=== PATIENT | female | born 1985 | race Caucasian/White ===

== ENCOUNTER 2017-03-31 06:59 | Emergency (ER) | payer SELFPAY ==
[~2017-03-31] VITALS: Ht 149.9 cm; Wt 42.4 kg
[2017-03-31 07:00] VITALS: BP 105/66
== END 2017-03-31 07:55 | disposition home or self-care (01) ==
LOC: ED 07:40
DX: L02.411 Cutaneous abscess of right axilla (principal)
CPT/HCPCS: 99283

== ENCOUNTER 2019-03-15 15:24 | Emergency (ER) | payer SELFPAY ==
[~2019-03-15] VITALS: Ht 157.5 cm; Wt 40.4 kg
[2019-03-15] MEDS ORDERED: MAALOX/HYOSCYAMINE/LIDOCAINE 45 ML BTL PO ONE (16:00)
[2019-03-15] MEDS ORDERED: MAALOX/HYOSCYAMINE/LIDOCAINE 45 ML BTL ONE (16:01)
[2019-03-15 16:13] VITALS: BP 103/61
--- NOTE | 2019-03-15 16:13 | NUR ---
in room to medicate pt. pt on bed naked and refusing to keep gown on. pt covered with blanket at this time but keeps pulling the blanket down. pt covered multiple times and advised to keep covered for privacy.
== END 2019-03-15 17:13 | disposition home or self-care (01) ==
LOC: ED 17:07
DX: R06.00 Dyspnea, unspecified (principal); R11.2 Nausea with vomiting, unspecified; R07.89 Other chest pain; F17.200 Nicotine dependence, unspecified, uncomplicated
CPT/HCPCS: 71046; 93005; 99283

== ENCOUNTER 2019-03-16 08:19 | Inpatient (IN) | payer OTHER ==
[~2019-03-16] VITALS: Ht 149.9 cm; Wt 39.9 kg
--- NOTE | 2019-03-16 09:25 | NUR ---
Pt to T1 from lobby
--- NOTE | 2019-03-16 10:04 | NUR ---
PT LAYING ON GURNEY WITH EYES CLOSED, RESPONDS TO MOST OF STAFF QUESTIONS, NAD, ABLE TO TOLERATE REMAINING [place] DESPITE ADVICE TO REMAIN NPO UNTIL TEST RESULTS BACK, NO NEEDS AT THIS TIME, CALL LIGHT WITHIN REACH.
[2019-03-16] MEDS ORDERED: KETOROLAC 30 MG/1 ML ONE (10:13)
[2019-03-16] MEDS ORDERED: KETOROLAC 30 MG/1 ML IM ONE (10:30)
[2019-03-16 10:35] LABS: ALBUMIN 4.5 g/dL (3.4-5.0); ANION GAP 11 mmol/L (5-15); CALCIUM 9.7 mg/dL (8.5-10.1); CHLORIDE 106 mmol/L (98-107); CREATININE 1.02 mg/dL (0.55-1.02)
[2019-03-16 10:36] LABS: BASOPHILS # (AUTO) 0.03 x10^3/uL (0-0.1); BASOPHILS % (AUTO) 0 % (0-1); EOSINOPHILS # (AUTO) 0.06 x10^3/uL (0-0.4); EOSINOPHILS % (AUTO) 0 % (1-7); LYMPHOCYTES # (AUTO) 1.77 x10^3/uL (1-3.4); LYMPHOCYTES % (AUTO) 12 % (22-44); MD NO; MEAN CORPUSCULAR HEMOGLOBIN 27.4 pg (27.0-34.8); MEAN CORPUSCULAR HGB CONC 32.2 g/dL (32.4-35.8); MEAN PLATELET VOLUME 7.7 fL (7.4-10.4); MONOCYTES # (AUTO) 0.72 x10^3/uL (0.2-0.8); MONOCYTES % (AUTO) 5 % (2-9); NEUTROPHILS # (AUTO) 12.53 x10^3/uL (1.8-6.8); NEUTROPHILS % (AUTO) 83 % (42-75); PLATELET COUNT 464 x10^3/uL (130-400); RED BLOOD COUNT 5.72 x10^6/uL (3.82-5.3); RED CELL DISTRIBUTION WIDTH 14.1 % (9.6-15.2)
[2019-03-16 10:40] LABS: AMPHETAMINE SCREEN, URINE Positive (Negative); BARBITURATE SCREEN, URINE Negative (Negative); BENZODIAZEPINE SCREEN, URINE Negative (Negative); CANNABINOID SCREEN, URINE Negative (Negative); COCAINE SCREEN, URINE Negative (Negative); METHADONE SCREEN, URINE Negative (Negative); OPIATE SCREEN, URINE Negative (Negative)
[2019-03-16 10:40] LABS: ALKALINE PHOSPHATASE 100 U/L (45-117); BILIRUBIN,TOTAL 1.1 mg/dL (0.2-1.0); TOTAL PROTEIN 8.9 g/dL (6.4-8.2)
[2019-03-16 10:41] LABS: MICROSCOPIC INDICATED
[2019-03-16 10:45] LABS: ALANINE AMINOTRANSFERASE 27 U/L (12-78)
--- NOTE | 2019-03-16 11:02 | NUR ---
PT CONTINUES TO LAY ON GURNEY WITH EYES CLOSED, RESPONDS TO MOST OF STAFF QUESTIONS, NAD, REFUSES VS OR TO KEEP MONITORS IN PLACE, NO NEEDS AT THIS TIME, CALL LIGHT WITHIN REACH.
[2019-03-16 11:30] LABS: CULTURE INDICATED? YES
[2019-03-16] MEDS ORDERED: SODIUM CHLORIDE 0.9% 1,000ML IVBOLUS ONE ×2 (12:00→12:30)
[2019-03-16] MEDS ORDERED: CEFTRIAXONE PMX 1GM/50ML 50 ML IVPB ONE (12:00)
[2019-03-16] MEDS ORDERED: SODIUM CHLORIDE FLUSH 10ML SYR IVF ONE (12:00)
--- NOTE | 2019-03-16 12:05 | NUR ---
PT LAYING ON GURNEY DEMANDING WATER PRIOR TO LABS OR SPEAKING TO [facility] AT BS, WATER GIVEN, PT STICKING FINGER DOWN THROAT & CAUSING HERSELF TO VOMIT CLEAR EMESIS, RESPONDS TO STAFF QUESTIONS, NO OTHER NEEDS AT THIS TIME, CALL LIGHT WITHIN REACH.
[2019-03-16] MEDS: NS + 20MEQ KCL 1,000 ML IV SCH ×2 (12:15→22:08)
[2019-03-16] MEDS ORDERED: CEFTRIAXONE PMX 1GM/50ML 50 ML ONE (12:25)
[2019-03-16] MEDS ORDERED: LORazepam 2 MG/ML, 1ML IVPush PRN (12:30)
[2019-03-16] MEDS ORDERED: ACETAMINOPHEN 325 MG TABLET PO PRN (12:30)
[2019-03-16] MEDS ORDERED: BACLOFEN 10 MG TABLET PO PRN (12:30)
[2019-03-16] MEDS ORDERED: IBUPROFEN 600 MG TABLET PO PRN (12:30)
[2019-03-16] MEDS ORDERED: ONDANSETRON 2MG/ML, 2ML IVPush PRN (12:30)
[2019-03-16] MEDS ORDERED: PROMETHAZINE 25 MG/ML, 1ML IM PRN (12:30)
[2019-03-16] MEDS ORDERED: hydrALAzine 20 MG/ML, 1ML IVPush PRN (12:30)
[2019-03-16] MEDS ORDERED: HALOPERIDOL 5 MG/ML IVPush PRN (12:30)
[2019-03-16] MEDS ORDERED: KETOROLAC 30 MG/1 ML IV PRN (12:30)
[2019-03-16] MEDS ORDERED: OXYcodone IR 5MG TABLET PO PRN (12:30)
[2019-03-16] MEDS ORDERED: ONDANSETRON ODT 4 MG PO PRN (12:30)
[2019-03-16] MEDS ORDERED: ONDANSETRON 2MG/ML, 2ML ONE (12:45)
--- NOTE | 2019-03-16 12:56 | NUR ---
lunch break RN: IVF infusing. Pt alternately spitting food into bag, sticking fingers down throat & drinking fluids. Began yelling, "I'm anaphylactic so I have to do this". Became agitated when I attempted to take tray away.
--- NOTE | 2019-03-16 13:28 | NUR ---
Pt began pulling off ECG leads, SPO2 monitor & BP cuff. States, "take this out of me, take this out of me" referring to IV. Compromise with pt of turning off IVF for now. States she wants to leave, Dr. Long brought to BS to speak with pt. For now, pt agrees to stay if she can have an albuterol treatment but will not wear ECG, SPO2 monitors. Continues to demand fluids & stick fingers down throat. Has been evaluated by COLEEN Lopez who states will re-eval. pt once upstairs.
[2019-03-16] MEDS ORDERED: LORazepam 2 MG/ML, 1ML ONE (13:33)
[2019-03-16] MEDS ORDERED: HALOPERIDOL 5 MG/ML ONE (13:41)
[2019-03-16] MEDS ORDERED: ALBUTEROL SULFATE 2.5 MG/3 ML NPPB PRN (14:00)
--- NOTE | 2019-03-16 14:00 | NUR ---
PT AGREEABLE TO [facility], ICE CHIPS GIVEN.
--- NOTE | 2019-03-16 14:07 | NUR ---
Pt to be admitted to [facility], room 488-1. Report called to
[2019-03-16 14:49] VITALS: BP 106/75
[2019-03-16] MEDS ORDERED: LORazepam 2 MG/ML, 1ML IM PRN (16:30)
[2019-03-16] MEDS ORDERED: HALOPERIDOL 5 MG/ML IM PRN (16:30)
[2019-03-16] MEDS ORDERED: ENOXAPARIN 40 MG/0.4 ML SQ SCH (19:00)
[2019-03-16 20:24] VITALS: BP 106/65
[2019-03-16 21:35] VITALS: BP 99/66
[2019-03-17 01:00] VITALS: BP 111/69
[2019-03-17] MEDS: NS + 20MEQ KCL 1,000 ML IV SCH (08:40)
[2019-03-17 08:44] VITALS: BP 104/69
[2019-03-17] MEDS ORDERED: CEFTRIAXONE PMX 1GM/50ML 50 ML IV SCH (12:30)
[2019-03-17 14:07] VITALS: BP 100/51
[2019-03-17] MEDS ORDERED: CEFD300C37 PO (14:22)
== END 2019-03-17 16:28 | disposition left against medical advice (07) | DRG 872 ==
LOC: ED 10:09 → EDIP 12:15 → 4EST 14:15
PROVIDERS: ADMIT Hospitalist; ATTEND Family Medicine
DX: A41.9 Sepsis, unspecified organism (principal); N10 Acute pyelonephritis; F15.159 Other stimulant abuse with stimulant-induced psychotic disorder, unspecified; Z87.891 Personal history of nicotine dependence; Z87.892 Personal history of anaphylaxis; Z91.011 Allergy to milk products; Z88.0 Allergy status to penicillin; Z53.29 Procedure and treatment not carried out because of patient's decision for other reasons
CPT/HCPCS: 36415; 80053; 80307; 81001; 83605; 83690; 84145; 84443; 84703; 85025; 87040; 87086; 93005; 99291; G0378; J0696; J1885; J2405; J3480; J7030